=== PATIENT | male | born 1995 | race Caucasian/White ===

== ENCOUNTER 2018-01-21 15:30 | Emergency (ER) | payer OTHER ==
[2018-01-21 16:56] LABS: ABS Basophils 0 10^3/ul (0-0.2); ABS Eosinophils 0 10^3/ul (0-0.6); ABS Lymphocytes 0.9 10^3/ul (1.0-4.8); ABS Monocytes 1.3 10^3/ul (0-0.8); ABS Nucleated RBC 0 10^3/ul; Eosinophil % 0.3 % (0-6); Hematocrit 40 % (42-52); Hemoglobin 13.4 g/dl (14.0-18.0); Lymphocyte % 6.6 % (25-47); Mean Corpuscular HGB Conc 33 g/dl (31-36); Mean Corpuscular Hemoglobin 25 pg (27-31); Mean Corpuscular Volume 76 fL (80-94); Nucleated Red Blood Cells % 0.1; Platelet Count 229 10^3/ul (150-450); Red Blood Count 5.28 10^6/ul (4.00-5.40); Red Cell Distribution Width 19 % (10.5-15); White Blood Count 14.3 10^3/ul (3.5-10.8)
[2018-01-21 17:13] LABS: EGFR Non-African American 102.6 (>60)
[2018-01-21] MEDS ORDERED: Iohexol 300* (CONTRAST) 10 ML SDV IV ONE (17:16)
--- NOTE | 2018-01-21 18:00 | RAD ---
CLINICAL HISTORY: Abscess near anus. Evaluate for perirectal fistula. COMPARISON: None TECHNIQUE: Multiple contiguous axial CT scans were obtained of the abdomen and pelvis after the administration of intravenous contrast. Coronal and sagittal multiplanar reformations are submitted for review. The patient received 93 mL Omnipaque 300. FINDINGS: Abutting the lower rectum and anus is a low-attenuation walled off fluid collection measuring approximately 5 x 5 cm in the sagittal plane (sagittal image 33) and up to 3.3 cm in the transverse plane (coronal image 34). This fluid collection extends laterally and posteriorly along the medial margin of the right gluteal fold. The visualized segments of small and large bowel are not distended. There is no gross retroperitoneal or mesenteric lymphadenopathy in the visualized portions of the abdomen. The lower abdominal aorta is normal in course and diameter. The arterial and venous structures of the pelvis and upper thighs are normal in size and morphology. The visualized bones are grossly normal. IMPRESSION: CT findings are consistent with a right-sided perirectal /perianal abscess extending into the more superficial medial right gluteal fold.
--- NOTE | 2018-01-21 18:16 | ED ---
Skin Complaint - HPI Summary HPI Summary: Patient complains of abscess on right buttock starting 2 months ago. Pt was placed on antibiotics for C. difficile and abscess seemed to improve. 1 week ago abscess returned when patient finished antibiotics.. No history of prior abscess. Pain with sitting, pain with ambulation, pain with bowel movement. Denies fever, purulent discharge, cough, sore throat, CP, N/V/D, abdominal pain , change in urine, change in BM, rash. Medical history is Crohn's. - History of Current Complaint Chief Complaint: EDRashSkinAbscess Time Seen by Provider: 01/21/18 16:24 Stated Complaint: [facility] TRANSFER Hx Obtained From: Patient Onset/Duration: Started Weeks Ago Timing: Constant Onset Severity: Moderate Current Severity: Moderate Pain Intensity: 5 Pain Scale Used: 0-10 Numeric Skin Location: Discrete Aggravating Symptom(s): Touch Alleviating Symptom(s): Nothing Associated Signs & Symptoms: Negative - Allergy/Home Medications Allergies/Adverse Reactions: Allergies Allergy/AdvReac Type Severity Reaction Status Date / Time No Known Allergies Allergy Verified 01/21/18 16:29 Home Medications: Home Medications Adalimumab [Humira] 40 mg SQ WEEKLY 01/21/18 [History Confirmed 01/21/18] PMH/Surg Hx/FS Hx/Imm Hx Endocrine/Hematology History: Denies: Hx Anticoagulant Therapy Cardiovascular History: Denies: Hx Cardiac Arrest History: Denies: Hx Dialysis Neurological History: Denies: Hx CVA - Immunization History Immunizations Up to Date: Yes Infectious Disease History: No Infectious Disease History: Denies: Traveled Outside the [place] in Last 30 Days - Social History Occupation: Student Alcohol Use: Weekly Substance Use Type: Reports: Marijuana Substance Use Comment - Amount & Last Used: Marijuana use last 2 days ago Smoking Status (MU): Never Smoked Tobacco Review of Systems Constitutional: Negative Eyes: Negative ENT: Negative Cardiovascular: Negative Respiratory: Negative Gastrointestinal: Negative Genitourinary: Negative Musculoskeletal: Negative Skin: Other Neurological: Negative Psychological: Normal All Other Systems Reviewed And Are Negative: Yes Physical Exam - Summary Physical Exam Summary: Perirectal abscess extending to right gluteus. No evidence of purulent discharge. No surface fluctuance. Triage Information Reviewed: Yes Vital Signs On Initial Exam: Initial Vitals Temp Pulse Resp BP Pulse Ox 100.3 F 103 16 122/73 97 01/21/18 16:01 01/21/18 16:01 01/21/18 16:01 01/21/18 16:01 01/21/18 16:01 Vital Signs Reviewed: Yes Appearance: Positive: Well-Appearing Skin: Positive: Warm Head/Face: Positive: Normal Head/Face Inspection Eyes: Positive: Normal Neck: Positive: Supple Respiratory/Lung Sounds: Positive: Clear to Auscultation Cardiovascular: Positive: Normal Abdomen Description: Positive: Nontender Musculoskeletal: Positive: Normal Neurological: Positive: Normal Psychiatric: Positive: Normal AVPU Assessment: Alert - Claude Coma Scale Best Eye Response: 4 - Spontaneous Best Motor Response: 6 - Obeys Commands Best Verbal Response: 5 - Oriented Coma Scale Total: 15 Procedures - Incision and Drainage 1 Site: right gluteus Anesthesia: Local Instrument(s): Scalpel Packing: Drain Diagnostics - Vital Signs Vital Signs Temp Pulse Resp BP Pulse Ox 01/21/18 16:01 100.3 F 103 16 122/73 97 - Laboratory Lab Results: Lab Results 01/21/18 01/21/18 Range/Units 16:50 16:50 WBC 14.3 H (3.5-10.8) 10^3/ul RBC 5.28 (4.00-5.40) 10^6/ul Hgb 13.4 L (14.0-18.0) g/dl Hct 40 L (42-52) % MCV 76 L (80-94) fL MCH 25 L (27-31) pg MCHC 33 (31-36) g/dl RDW 19 H (10.5-15) % Plt Count 229 (150-450) 10^3/ul MPV 7.0 L (7.4-10.4) um3 Neut % (Auto) 83.7 H (38-83) % Lymph % (Auto) 6.6 L (25-47) % [place] % (Auto) 9.2 H (0-7) % Eos % (Auto) 0.3 (0-6) % Baso % (Auto) 0.2 (0-2) % Absolute Neuts (auto) 12.0 H (1.5-7.7) 10^3/ul Absolute Lymphs (auto) 0.9 L (1.0-4.8) 10^3/ul Absolute Monos (auto) 1.3 H (0-0.8) 10^3/ul Absolute Eos (auto) 0 (0-0.6) 10^3/ul Absolute Basos (auto) 0 (0-0.2) 10^3/ul Absolute Nucleated RBC 0 10^3/ul Nucleated RBC % 0.1 Sodium 134 L (135-145) mmol/L Potassium 3.9 (3.5-5.0) mmol/L Chloride 100 L (101-111) mmol/L Carbon Dioxide 25 (22-32) mmol/L Anion Gap 9 (2-11) mmol/L BUN 12 (6-24) mg/dL Creatinine 0.93 (0.67-1.17) mg/dL Est GFR ( Amer) 124.1 (>60) Est GFR (Non-Af Amer) 102.6 (>60) BUN/Creatinine Ratio 12.9 (8-20) Glucose 92 (70-100) mg/dL Calcium 9.4 (8.6-10.3) mg/dL Total Bilirubin 0.90 (0.2-1.0) mg/dL AST 13 (13-39) U/L ALT 17 (7-52) U/L Alkaline Phosphatase 66 (34-104) U/L C-Reactive Protein 153.39 H (<8.01) mg/L Total Protein 7.6 (6.4-8.9) g/dL Albumin 3.8 (3.2-5.2) g/dL Globulin 3.8 (2-4) g/dL Albumin/Globulin Ratio 1.0 (1-3) Result Diagrams: 01/21/18 16:50 01/21/18 16:50 Lab Statement: Any lab studies that have been ordered have been reviewed, and results considered in the medical decision making process. - CT pelvis CT Interpretation: No Acute Changes - CT findings consistent with a right-sided perirectal perianal abscess extending into the more superficial medial right gluteal fold. Low-attenuation walled off fluid collection abutting the lower rectum and anus. Fluid collection extends laterally and posteriorly or along the medial margin of the right gluteal fold. CT Interpretation Completed By: Radiologist Course/Dx - Course Course Of Treatment: Patient complains of abscess on right buttock starting 2 months ago. Pt was placed on antibiotics for C. difficile and abscess seemed to improve. 1 week ago abscess returned when patient finished antibiotics.. No history of prior abscess. Pain with sitting, pain with ambulation, pain with bowel movement. Denies fever, purulent discharge, cough, sore throat, CP, N/V/D , abdominal pain, change in urine, change in BM, rash. Medical history is Crohn 's. Physical exam:Perirectal abscess extending to right gluteus. No evidence of purulent discharge. No surface fluctuance. CT pelvis negative for intestinal or sphincter involvement. I and D performed. Positive purulent drainage. Wound packed. Started on Bactrim here in the ED, Rx for same. Follow-up in 2 days with general surgery for further evaluation. - Diagnoses Provider Diagnoses: Perirectal abscess Discharge - Sign-Out/Discharge Documenting (check all that apply): Patient Departure - Discharge Plan Condition: Stable Disposition: HOME Prescriptions: Sulfamethox/Trimethoprim DS* [Bactrim DS 800/160 TAB*] 1 tab PO BID 10 Days #20 tab Forms: *School Release Referrals: No Primary Care Phys,NOPCP [Primary Care Provider] - Omid Freitas MD [Medical Doctor] - Additional Instructions: Ibuprofen for pain. Keep wound area clean with warm running water and soap. Keep packing in place. Follow-up in 2 days with general surgery Dr. Freitas. Return to the ED for any new or worsening symptoms - Billing Disposition and Condition Condition: STABLE Disposition: Home
[2018-01-21] MEDS ORDERED: Sulfamethox/Trimethoprim DS 800/160* TAB PO ONE (19:26)
[2018-01-21 20:07] VITALS: BP 116/70
== END 2018-01-21 20:06 | disposition home or self-care (01) ==
LOC: ED 15:30
DX: K61.1 Rectal abscess (principal)
CPT/HCPCS: 10060; 36415; 72193; 80053; 85025; 86140; 99282; A9270-GY; Q9967

== ENCOUNTER → 2018-01-23 13:53 | Day surgery (SDC) | payer OTHER ==
[~2018-01-23 13:53] MED LIST: Bupivacaine 0.25% EPI 200,000* 30 ML SDV ONE; HYDROmorphone INJ1* 1 MG/ML SYRINGE ONE; Ketorolac INJ* 30 MG/ML 1 ML VIAL ONE; Lidocaine 2% PF * 5 ML VIAL ONE; Metoclopramide IV* 5 MG/ML 2 ML VIAL ONE; Midazolam* 1 MG/ML 5 ML VIAL (5 MG) ONE; Mivacurium Chloride* 20 MG/10 ML VIAL IV ONE; Naloxone* 0.4 MG/ML 1 ML VIAL IV PRN; Ondansetron INJ* 2 MG/ML VIAL IV PRN; Propofol* 10 MG/ML 20 ML BTL IV PUSH ONE; ceFOXitin 2 GM IVPREMIX* 2 GM/50 ML BAG ONE; fentaNYL* 50 MCG/ML 2 ML VIAL (100 MCG VIAL) IV PRN; fentaNYL* 50 MCG/ML 2 ML VIAL (100 MCG VIAL) ONE
[2018-01-23 17:46] VITALS: BP 105/69
--- NOTE | 2018-01-24 06:05 | OP ---
CC: [facility] * DATE OF OPERATION: 01/23/18 - [facility] DATE OF : 89. SURGEON: Luis Daniel Madden M.D. BLOOD OR BLOOD BANK TECHNICIAN: None. ANESTHESIOLOGIST: Dr. Romero. ANESTHESIA: General anesthetic, local infiltration. PRE-OP DIAGNOSIS: Perirectal abscess. POST-OP DIAGNOSIS: Perirectal abscess. OPERATIVE PROCEDURE: Incision and drainage of perirectal abscess. DESCRIPTION OF PROCEDURE: The patient was placed in the prone jackknife position with the buttocks taped apart. The area was prepped with Betadine and draped in a sterile fashion. He is under general aesthetic. He was given intravenous antibiotics. He has the Lidia-Hugger warmer and compression stockings. The previous I and D site is noted to have a large area of erythema and induration and fluctuance around it. Digital rectal and anoscopic examination was carried out. There was no evidence of internal fistula or inflammation or granulation, nothing of that sort. Swabs were used to take cultures of the abscess cavity and these were sent to laboratory. The cavity extended up approximately 8 to 10 cm from the incision and drainage site. The site was opened up by an extra centimeter, so that I could place my finger. I broke down some adhesions and the cavity extended up as noted almost 10 cm in. I made a second incision in the perianal area in the upper right aspect more near the upper end of the cavity. The cavity was cleaned out and then 0.5 inch iodoform packing was used from both sites to fill the cavity. He had bulky gauze bandage placed and then he was awakened and brought to Recovery in good condition. No complications. No drains. The only specimens were the cultures as noted above. Sponge and instrument counts were correct. Estimated blood loss was maybe 10 to 20 mL. [id number]/[facility] #: [id number] [facility]
== END | disposition home or self-care (01) ==
LOC: OR 13:53
PROVIDERS: ATTEND Surgery
DX: K61.2 Anorectal abscess (principal); K50.00 Crohn's disease of small intestine without complications; F12.10 Cannabis abuse, uncomplicated
CPT/HCPCS: 87070; 87073; 87076; 87077; 87185; 87186; 87205; J0694; J1170; J1885; J2250; J2704; J2765; J3010